=== PATIENT | male | born 1960 | race Caucasian/White ===

== ENCOUNTER 2017-10-18 01:01 | Inpatient (IN) | payer BC ==
[~2017-10-18] VITALS: Ht 149.9 cm; Wt 65.9 kg
[~2017-10-18 01:01] MED LIST: LIPITOR40 MG PO
[2017-10-18 02:10] LABS: HEMOGLOBIN 14.7 G/DL (12.5-16.6); MCH 30.8 PG (29.0-34.0); MCV 87.9 FL (86-99); PLATELET COUNT 286 K/uL (156-360); RBC DIS.WIDTH-CV 12.5 % (11.8-14.6); RBC DIS.WIDTH-SD 40.4 % (39-53); RED BLOOD COUNT 4.78 M/uL (4.00-5.50); WHITE BLOOD COUNT 9.2 K/uL (4.1-10.2)
[2017-10-18 02:26] LABS: ALBUMIN 3.9 g/dL (3.2-4.8); CHLORIDE 106 mEq/L (99-109); POTASSIUM 4.5 mEq/L (3.7-5.4); SODIUM 139 mEq/L (136-147)
[2017-10-18 02:28] LABS: GLUCOSE 119 mg/dL (70-99); TOTAL PROTEIN 6.5 g/dL (6.4-8.3)
[2017-10-18 02:30] LABS: TOTAL BILIRUBIN 0.3 mg/dL (0.0-1.0)
[2017-10-18 02:32] LABS: ALKALINE PHOSPHATASE 120 IU/L (3-129); CREATININE 1.5 mg/dL (0.6-1.3); GFR ESTIMATE (CALCULATED) 51 mL/min/ (58.99-99999)
[2017-10-18 02:33] LABS: AST (GOT) 22 IU/L (2-34); UREA NITROGEN (BUN) 14 mg/dL (9-23)
[2017-10-18 02:35] LABS: ALT (GPT) 33 IU/L (3-49)
[2017-10-18 03:02] LABS: APPEARANCE CLOUDY ((CLEAR)); BILIRUBIN NEGATIVE; BLOOD LARGE; COLOR YELLOW ((YELLOW)); GLUCOSE (STRIP) NEGATIVE; KETONES NEGATIVE; LEUKOCYTES NEGATIVE; NITRITE NEGATIVE; PROTEIN (STRIP) 100; SPECIFIC GRAVITY 1.023 (1.000-1.030); UROBILINOGEN 0.2 MG/DL (0.2-1.0)
[2017-10-18 03:18] LABS: LIPASE 26 U/L (1.0-51.0)
[2017-10-18 03:43] LABS: MUCUS 3+ /LPF; RED BLOOD CELLS TNTC /HPF (0-5)
[2017-10-18 03:44] LABS: EPITHELIAL CELLS RARE /HPF
[2017-10-18 03:49] LABS: BACTERIA 1+ /HPF; UCUL ADDED? YES
[2017-10-18 08:01] VITALS: BP 147/82
[2017-10-18 11:55] VITALS: BP 113/67
[2017-10-18 15:12] VITALS: BP 105/59
[2017-10-18 19:20] VITALS: BP 104/61
[2017-10-18 23:12] VITALS: BP 100/56
[2017-10-19 03:59] VITALS: BP 107/62
[2017-10-19 05:58] LABS: BASOPHIL (%) 0.8 % (0-1); BASOPHIL COUNT 0.1 K/uL (0-0.1); EOSINOPHIL (%) 2.4 % (0-5); EOSINOPHIL COUNT 0.2 K/uL (0-0.3); HEMATOCRIT 33.7 % (38.0-50.0); IMMATURE GRANULOCYTE (%) 0.5 % (0.0-0.7); LYMPHOCYTE (%) 41.4 % (15-42); LYMPHOCYTE COUNT 2.6 K/uL (1.0-2.8); MCH 29.6 PG (29.0-34.0); MCHC 32.3 G/DL (30.0-36.0); MCV 91.6 FL (86-99); MONOCYTE (%) 9.3 % (3-12); MONOCYTE COUNT 0.6 K/uL (0-0.8); NEUTROPHIL (%) 45.6 % (45-76); NEUTROPHIL COUNT 2.8 K/uL (1.8-6.4); PLATELET COUNT 230 K/uL (156-360); RBC DIS.WIDTH-CV 12.7 % (11.8-14.6); RBC DIS.WIDTH-SD 42.5 % (39-53); WHITE BLOOD COUNT 6.2 K/uL (4.1-10.2)
[2017-10-19 06:19] LABS: CHLORIDE 111 MEQ/L (99-109); CREATININE 1.6 MG/DL (0.6-1.3); GFR ESTIMATE (CALCULATED) 47 mL/min/ (58.99-99999); GLUCOSE 99 mg/dL (70-99); POTASSIUM 4.8 MEQ/L (3.7-5.4); SODIUM 140 MEQ/L (136-147); UREA NITROGEN (BUN) 13 mg/dL (9-23)
[2017-10-19 06:26] LABS: HEMOGLOBIN 10.9 G/DL (12.5-16.6); RED BLOOD COUNT 3.68 M/uL (4.00-5.50)
[2017-10-19 08:15] VITALS: BP 139/79
[2017-10-19 11:07] VITALS: BP 121/71
[2017-10-19 15:50] VITALS: BP 140/66
[2017-10-19 19:45] VITALS: BP 119/64
[2017-10-20] VITALS (7 sets, daily range): BP systolic 112–141; BP diastolic 55–82
[2017-10-20 06:31] LABS: HEMATOCRIT 33.1 % (38.0-50.0); HEMOGLOBIN 11.3 G/DL (12.5-16.6); MCHC 34.1 G/DL (30.0-36.0); MCV 90.7 FL (86-99); PLATELET COUNT 228 K/uL (156-360); RBC DIS.WIDTH-CV 12.6 % (11.8-14.6); RBC DIS.WIDTH-SD 41.2 % (39-53); RED BLOOD COUNT 3.65 M/uL (4.00-5.50); WHITE BLOOD COUNT 9.6 K/uL (4.1-10.2)
[2017-10-20 06:58] LABS: CHLORIDE 111 MEQ/L (99-109); CREATININE 1.6 MG/DL (0.6-1.3); GFR ESTIMATE (CALCULATED) 47 mL/min/ (58.99-99999); GLUCOSE 104 mg/dL (70-99); POTASSIUM 4.3 MEQ/L (3.7-5.4); SODIUM 140 MEQ/L (136-147); UREA NITROGEN (BUN) 14 mg/dL (9-23)
[2017-10-21 03:31] VITALS: BP 108/57
[2017-10-21 06:38] LABS: CHLORIDE 109 MEQ/L (99-109); CREATININE 1.7 MG/DL (0.6-1.3); GFR ESTIMATE (CALCULATED) 44 mL/min/ (58.99-99999); GLUCOSE 82 mg/dL (70-99); POTASSIUM 4.4 MEQ/L (3.7-5.4); SODIUM 139 MEQ/L (136-147); UREA NITROGEN (BUN) 15 mg/dL (9-23)
[2017-10-21 08:03] VITALS: BP 120/61
[2017-10-21 09:07] LABS: TROP-I INTERPRETATION NEGATIVE; TROPONIN-I < 0.01 ng/mL (0.0-0.30)
[2017-10-21 11:10] VITALS: BP 126/67
[2017-10-21 15:18] LABS: TROP-I INTERPRETATION NEGATIVE; TROPONIN-I < 0.01 ng/mL (0.0-0.30)
[2017-10-21 16:07] VITALS: BP 118/69
[2017-10-21 19:53] VITALS: BP 141/66
[2017-10-21 21:16] LABS: TROP-I INTERPRETATION NEGATIVE; TROPONIN-I < 0.01 ng/mL (0.0-0.30)
[2017-10-22] VITALS (7 sets, daily range): BP systolic 117–162; BP diastolic 64–76
[2017-10-22 05:49] LABS: HEMOGLOBIN 12.2 G/DL (12.5-16.6); MCH 30.9 PG (29.0-34.0); MCHC 33.9 G/DL (30.0-36.0); MCV 91.1 FL (86-99); PLATELET COUNT 273 K/uL (156-360); RBC DIS.WIDTH-CV 12.5 % (11.8-14.6); RBC DIS.WIDTH-SD 41.2 % (39-53); RED BLOOD COUNT 3.95 M/uL (4.00-5.50); WHITE BLOOD COUNT 8.5 K/uL (4.1-10.2)
[2017-10-22 06:19] LABS: CHLORIDE 105 MEQ/L (99-109); CREATININE 1.4 MG/DL (0.6-1.3); GFR ESTIMATE (CALCULATED) 55 mL/min/ (58.99-99999); GLUCOSE 75 mg/dL (70-99); POTASSIUM 4.2 MEQ/L (3.7-5.4); SODIUM 139 MEQ/L (136-147); UREA NITROGEN (BUN) 16 mg/dL (9-23)
[2017-10-23 03:53] VITALS: BP 141/78
[2017-10-23 06:12] LABS: BASOPHIL COUNT 0.1 K/uL (0-0.1); EOSINOPHIL (%) 4.3 % (0-5); EOSINOPHIL COUNT 0.3 K/uL (0-0.3); HEMATOCRIT 35.8 % (38.0-50.0); HEMOGLOBIN 12.2 G/DL (12.5-16.6); IMMATURE GRANULOCYTE (%) 0.5 % (0.0-0.7); LYMPHOCYTE (%) 27.4 % (15-42); LYMPHOCYTE COUNT 1.7 K/uL (1.0-2.8); MCH 30.4 PG (29.0-34.0); MCHC 34.1 G/DL (30.0-36.0); MCV 89.3 FL (86-99); MONOCYTE (%) 10.3 % (3-12); MONOCYTE COUNT 0.6 K/uL (0-0.8); NEUTROPHIL (%) 56.5 % (45-76); NEUTROPHIL COUNT 3.4 K/uL (1.8-6.4); PLATELET COUNT 280 K/uL (156-360); RBC DIS.WIDTH-CV 12.5 % (11.8-14.6); RED BLOOD COUNT 4.01 M/uL (4.00-5.50)
[2017-10-23 07:12] LABS: C4 COMPLEMENT 28 MG/DL (10-40)
[2017-10-23 07:14] LABS: ALBUMIN 3.3 G/DL (3.2-4.8); ALKALINE PHOSPHATASE 88 IU/L (3-129); ALT (GPT) 16 IU/L (3-49); AST (GOT) 17 IU/L (2-34); CHLORIDE 102 MEQ/L (99-109); CREATININE 1.4 MG/DL (0.6-1.3); GFR ESTIMATE (CALCULATED) 55 mL/min/ (58.99-99999); GLUCOSE 78 mg/dL (70-99); MAGNESIUM 1.9 mg/dl (1.3-2.7); PHOSPHORUS 2.9 mg/dL (2.5-4.9); POTASSIUM 4.2 MEQ/L (3.7-5.4); SODIUM 137 MEQ/L (136-147); TOTAL BILIRUBIN 0.4 MG/DL (0.0-1.0); TOTAL PROTEIN 5.8 G/DL (6.4-8.3); UREA NITROGEN (BUN) 13 mg/dL (9-23)
[2017-10-23 07:49] LABS: INTACT PARATHYROID HORMONE 90 pg/mL (10-69)
[2017-10-23 08:35] VITALS: BP 169/84
[2017-10-23] MEDS ORDERED: POLYETHYLENE GL17 GM PO (10:57)
[2017-10-23] MEDS ORDERED: TAMSULOSIN HCL0.4 MG PO (10:57)
[2017-10-23] MEDS ORDERED: ENDOCET 5-3251 EACH PO (10:57)
[2017-10-23 11:56] VITALS: BP 133/75
[2017-10-23 12:47] LABS: HEPATITIS C ANTIBODY Nonreactive
[2017-10-25 13:50] LABS: Neutrophil Cytoplasmic Aby Negative (Negative)
== END 2017-10-23 15:10 | disposition home or self-care (01) | DRG 694 ==
LOC: EME 01:01 → EDOF 05:36 → 5WEST 05:36 → ENRESERV 05:37 → 5WEST 07:00
PROVIDERS: Hospitalist; Internal Medicine; Internal Medicine Cardiovascular Disease; Internal Medicine Nephrology; Nurse Practitioner Adult Health
PROC: 0T768DZ Dilation of Right Ureter with Intraluminal Device, Via Natural or Artificial Opening Endoscopic (ICD-10-PCS; principal; 2017-10-19)
DX: N13.2 Hydronephrosis with renal and ureteral calculous obstruction (principal); N17.9 Acute kidney failure, unspecified; N39.0 Urinary tract infection, site not specified; I27.20 Pulmonary hypertension, unspecified; R00.0 Tachycardia, unspecified; H11.33 Conjunctival hemorrhage, bilateral; N18.3 Chronic kidney disease, stage 3 (moderate); D64.9 Anemia, unspecified; I12.9 Hypertensive chronic kidney disease with stage 1 through stage 4 chronic kidney disease, or unspecified chronic kidney disease; R23.3 Spontaneous ecchymoses; R80.9 Proteinuria, unspecified; J30.2 Other seasonal allergic rhinitis; Z72.0 Tobacco use; Z74.01 Bed confinement status; Z79.899 Other long term (current) drug therapy; Z87.442 Personal history of urinary calculi
CPT/HCPCS: 70450; 74018; 74019; 74176; 76000; 76770; 78452; 80048; 80053; 81003; 82306; 82570; 83690; 83735; 83970; 84100; 84156; 84484; 84550; 85025; 85027; 86021 90; 86038; 86160; 86235; 86803; 87040; 87086; 93005; 93017; 93306; 99281; 99285; A9500; C2625; G0378; J0696; J1100; J2405; J2785; J3010; J7030

== ENCOUNTER 2018-01-08 05:34 | Day surgery (SDC) | payer BC ==
[~2018-01-08] VITALS: Ht 152.4 cm; Wt 63.0 kg
[~2018-01-08 05:34] MED LIST changes: +ENDOCET 5-3251 EACH PO; +POLYETHYLENE GL17 GM PO; +TAMSULOSIN HCL0.4 MG PO; +TYLENOL REGULA325 MG PO
[2018-01-08 06:07] VITALS: BP 131/74
[2018-01-08 09:22] VITALS: BP 110/67
[2018-01-08 10:36] VITALS: BP 139/77
== END 2018-01-08 10:30 | disposition home or self-care (01) ==
LOC: SDC 05:34
PROVIDERS: Urology
PROC: 0T768DZ Dilation of Right Ureter with Intraluminal Device, Via Natural or Artificial Opening Endoscopic (ICD-10-PCS; principal; 2018-01-08)
PROC: 0TF68ZZ Fragmentation in Right Ureter, Via Natural or Artificial Opening Endoscopic (ICD-10-PCS; principal; 2018-01-08)
DX: N20.1 Calculus of ureter (principal); N18.3 Chronic kidney disease, stage 3 (moderate); Z84.1 Family history of disorders of kidney and ureter; Z82.49 Family history of ischemic heart disease and other diseases of the circulatory system; Z83.3 Family history of diabetes mellitus
CPT/HCPCS: 82365 90; C2625; J0690; J1100; J2250; J2405; J2765; J3010